=== PATIENT | male | born 1970 | race African-American/Black ===

== ENCOUNTER 2021-06-14 05:38 | Inpatient (IN) ==
[2021-06-14] MEDS ORDERED: VANCOMYCIN 1,000 MG VIAL ONE (05:54)
[2021-06-14] MEDS ORDERED: ceFAZolin 1,000 MG VIAL ONE ×2 (05:54→07:55)
[2021-06-14] MEDS ORDERED: propofoL 200 MG/20 ML VIAL IV ONE ×3 (06:17→08:40)
[2021-06-14] MEDS ORDERED: LIDOCAINE 2% 5 ML VIAL ONE (06:17)
[2021-06-14] MEDS ORDERED: fentaNYL 100 MCG/2 ML VIAL ONE (06:17)
[2021-06-14] MEDS ORDERED: MIDAZOLAM 2 MG/2 ML VIAL ONE ×3 (06:18→08:39)
[2021-06-14] MEDS ORDERED: GABAPENTIN 400 MG CAPSULE PO ONE (06:23)
[2021-06-14] MEDS ORDERED: ACETAMINOPHEN 500 MG TABLET PO ONE (06:23)
[2021-06-14] MEDS ORDERED: BUPIVACAINE MPF 0.25% 30 ML VIAL ONE (06:30)
[2021-06-14] MEDS ORDERED: LACTATED RINGERS 1,000 ML IV SCH (06:30)
[2021-06-14] MEDS ORDERED: DEXAMETHASONE 4 MG/1 ML VIAL ONE (06:30)
[2021-06-14] MEDS ORDERED: BUPIVACAINE SPINAL 0.75% 2 ML AMP SPINAL ONE (06:39)
[2021-06-14] MEDS ORDERED: BISACODYL 10 MG SUPP RECTAL PRN (07:14)
[2021-06-14] MEDS ORDERED: MAGNESIUM HYDROXIDE SUSP 30 ML UDCUP PO PRN (07:14)
[2021-06-14] MEDS ORDERED: diphenhydrAMINE CAP 25 MG CAPSULE PO PRN (07:14)
[2021-06-14] MEDS ORDERED: PROMETHAZINE 25 MG/1 ML VIAL IM PRN (07:14)
[2021-06-14] MEDS ORDERED: TEMAZEPAM 7.5 MG CAPSULE PO PRN (07:14)
[2021-06-14] MEDS ORDERED: MORPHINE 2 MG/1 ML SYRINGE IV PRN ×2 (07:14→07:29)
[2021-06-14] MEDS ORDERED: LACTULOSE 20 GM/30 ML UDCUP PO PRN (07:14)
[2021-06-14] MEDS ORDERED: KETAMINE 500 MG/10 ML VIAL ONE (07:21)
[2021-06-14] MEDS ORDERED: LACTATED RINGERS 1,000 ML IV ONE (07:45)
[2021-06-14] MEDS ORDERED: SODIUM CHLORIDE 0.9% 250 ML IV ONE (07:45)
[2021-06-14] MEDS ORDERED: ePHEDrine 50 MG/ML VIAL ONE (07:55)
[2021-06-14] MEDS ORDERED: SODIUM CHLORIDE 0.9% 100 ML IV ONE ×2 (08:11→08:40)
[2021-06-14] MEDS ORDERED: TRANEXAMIC ACID 1,000 MG/10 ML VIAL ONE (08:11)
[2021-06-14] MEDS ORDERED: hydrALAZINE 20 MG/1 ML VIAL ONE (08:44)
[2021-06-14 09:26] LABS: Bilirubin,Urine Negative (Negative); Blood, Urine Negative (Negative); Glucose,Urine (UA) Negative (Negative); Ketones,Urine Negative (Negative); Mucus,Urine Few /LPF (Occasional); Nitrite,Urine Negative (Negative); Protein,Urine Negative; RBC,Urine 2 /HPF (0-4); Urine Appearance CLEAR (Clear); Urine Color Yellow (Yellow); Urine Specific Gravity 1.023 (1.001-1.035); Urine Urobilinogen < 2.0 EU/DL (<2.0)
[2021-06-14] MEDS ORDERED: hydrALAZINE 20 MG/1 ML VIAL IV PRN (13:43)
[2021-06-14] MEDS: ONDANSETRON 4 MG/2 ML VIAL IV PRN (14:07)
[2021-06-14] MEDS: ceFAZolin 2,000 MG/50 ML DUPLEX IV SCH ×2 (14:07→21:28)
[2021-06-14] MEDS: FONDAPARINUX 2.5 MG/0.5 ML SYRINGE SUBCUT SCH (21:28)
[2021-06-14] MEDS: DOCUSATE SODIUM 100 MG CAPSULE PO SCH (21:28)
[2021-06-15 05:58] LABS: Hematocrit 31.5 VOL% (42.0-52.0); Hemoglobin 10.2 GM/DL (14.0-18.0); Immature Granulocytes % 0.4 %; Immature Granulocytes Absolute 0.03 #; Lymphocytes # 1.7 10*3/uL (1.4-4.0); Lymphocytes % 21.3 % (21.2-54.2); Mean Corpuscular HGB Conc 32.4 GM/DL (32-36); Mean Corpuscular Volume 83.8 FL (87-102); Mean Platelet Volume 9.8 FL (9.6-12.0); Monocytes % 14.5 % (1.7-12.7); Neutrophils % 63.8 % (38.7-73.9); Platelet Count 221 T/CUMM (130-400); Red Blood Count 3.76 MC/CUMM (3.8-5.5); Red Cell Distribution Width 15.1 % (9.3-17.3); White Blood Count 8.2 T/CUMM (4-12)
[2021-06-15 06:24] LABS: Calcium 8.7 MG/DL (8.5-10.1); Osmolality,Calculated 277.7 MOS/KG (273-304); Potassium 3.5 MMOL/L (3.5-5.1)
[2021-06-15] MEDS ORDERED: ACETAMINOPHEN 325 MG TABLET PO PRN (07:15)
[2021-06-15] MEDS: hydroCHLOROthiazide 12.5 MG CAPSULE PO SCH (09:33)
[2021-06-15] MEDS: MELOXICAM 7.5 MG TABLET PO SCH (09:33)
[2021-06-15] MEDS: ENALAPRIL 5 MG TABLET PO SCH (09:33)
[2021-06-15] MEDS: ONDANSETRON 4 MG/2 ML VIAL IV PRN (09:33)
[2021-06-15] MEDS: DOCUSATE SODIUM 100 MG CAPSULE PO SCH ×2 (09:33→20:40)
[2021-06-15] MEDS: FONDAPARINUX 2.5 MG/0.5 ML SYRINGE SUBCUT SCH (20:40)
[2021-06-16] MEDS: hydroCHLOROthiazide 12.5 MG CAPSULE PO SCH (10:04)
[2021-06-16] MEDS: DOCUSATE SODIUM 100 MG CAPSULE PO SCH (10:04)
[2021-06-16] MEDS: ENALAPRIL 5 MG TABLET PO SCH (10:04)
[2021-06-16] MEDS: MELOXICAM 7.5 MG TABLET PO SCH (10:04)
[2021-06-16 11:44] VITALS: BP 150/89
[2021-06-18] MEDS ORDERED: ERGOCALCIFEROL 50,000 UNIT CAPSULE PO SCH (09:00)
== END 2021-06-16 14:20 | disposition home health service (06) | DRG 470 ==
LOC: N.SDSINP 05:38 → N.3E 10:29
PROVIDERS: ADMIT Orthopaedic Surgery; ATTEND Orthopaedic Surgery